=== PATIENT | female | born 1995 | race American Indian/Alaskan Native ===

== ENCOUNTER 2016-11-22 17:47 | Emergency (ER) | payer OTHER ==
[2016-11-22 19:28] LABS: Bilirubin,Urine NEG (Negative); Blood,Urine NEG (Negative); Ketones,Urine NEG (Negative); Leukocyte Esterase,Urine TR (Negative); Mucus,Urine FEW /HPF; Nitrite,Urine NEG (Negative); Protein,Urine <15 mg/dL mg/dL (Negative); RBC,Urine < 1.0 /HPF (0.0-6.0); Urobilinogen,Urine < 2.0 mg/dL (<2.0)
--- NOTE | 2016-11-22 21:31 | Emergency Department Report ---
Entered by MARTIN SEBASTIAN, acting as scribe for JANEL LICEA PA. ED Female HPI - General Chief complaint: Urogenital-Female Stated complaint: CHECK FOR BV Time Seen by Provider: 11/22/16 20:20 Source: patient Mode of arrival: Ambulatory Limitations: No Limitations - History of Present Illness Initial comments: 20 y/o female presents to the ED c/o vaginal discharge x 2 weeks. Associated symptoms include odor but denies fever, chills, dysuria, hematuria, vaginal bleed, abdominal pain, nausea and vomiting. Patient states she is not concerned about STDs but wants to be checked for BV. States unprotected sex with one partner. No alleviating or aggravating factors. NKDA. LMP: 11/07/16. PSHx of tonsillectomy. patient has declined STD treatment and will wait for results. Complaint: vaginal discharge Onset/Timin -: week(s) Severity: mild Consistency: constant Improves with: none Worsens with: none Are you Now?: No Last Menstrual Period: 11/07/16 EDC: 08/14/17 Associated Symptoms: vaginal discharge. denies: vaginal bleeding, abdominal pain, nausea/vomiting, fever/chills, dysuria, hematuria, rash - Related Data Sexually active: Yes Allergies Allergy/AdvReac Type Severity Reaction Status Date / Time No Known Allergies Allergy Unverified 11/22/16 17:54 ED Review of Systems Comment: All other systems reviewed and negative Constitutional: denies: chills, fever Eyes: denies: eye pain, eye discharge, vision change ENT: denies: ear pain, throat pain Respiratory: denies: cough, shortness of breath, wheezing Cardiovascular: denies: chest pain, palpitations Endocrine: no symptoms reported Gastrointestinal: denies: abdominal pain, nausea, vomiting Genitourinary: discharge (white). denies: urgency, dysuria, hematuria Musculoskeletal: denies: back pain, joint swelling, arthralgia Skin: denies: rash, lesions Neurological: denies: headache, weakness, numbness, paresthesias, confusion, abnormal gait, vertigo Psychiatric: denies: anxiety, depression Hematological/Lymphatic: denies: easy bleeding, easy bruising ED Past Medical Hx - Past Medical History Previous Medical History?: No - Surgical History Past Surgical History?: Yes Additional Surgical History: tonsillectomy, d&c - Social History Smoking Status: Never Smoker Substance Use Type: None ED Physical Exam - General Limitations: No Limitations General appearance: alert, in no apparent distress - Head Head exam: Present: atraumatic, normocephalic, normal inspection - Eye Eye exam: Present: normal appearance, PERRL, EOMI Pupils: Present: normal accommodation - ENT ENT exam: Present: normal exam, normal orophraynx, mucous membranes moist, normal external ear exam - Neck Neck exam: Present: normal inspection - Respiratory Respiratory exam: Present: normal lung sounds bilaterally. Absent: respiratory distress, wheezes, rales, rhonchi, stridor - Cardiovascular Cardiovascular Exam: Present: regular rate, normal rhythm, normal heart sounds. Absent: bradycardia, tachycardia, irregular rhythm - GI/Abdominal GI/Abdominal exam: Present: soft, normal bowel sounds. Absent: distended, tenderness, guarding, rebound, rigid - External exam: Present: normal external exam Speculum exam: Present: normal speculum exam, cervical discharge (white) - Extremities Exam Extremities exam: Present: normal inspection - Back Exam Back exam: Present: normal inspection, full ROM - Neurological Exam Neurological exam: Present: alert, oriented X3, normal gait - Psychiatric Psychiatric exam: Present: normal affect, normal mood - Skin Skin exam: Present: warm, dry, intact, normal color. Absent: rash - Other Other exam information: Albino Sebastian present during external/speculum/bi-manual exam ED Course Vital Signs 11/22/16 17:54 Temperature 99 F Pulse Rate 66 Respiratory 16 Rate Blood Pressure 100/69 O2 Sat by Pulse 100 Oximetry ED Medical Decision Making - Lab Data wet prep positive for clue cells - Medical Decision Making 20 year old female presents to ED with vaginal discharge and odor. patient has wet prep positive for BV. patient is stable, neurologically intact and in no acute distress. patient has GC results pending and has declined treatment during today's ED visit. patient agrees and understands to return for STD results if desired. ED Disposition Clinical Impression: Bacterial vaginosis Disposition: DC- TO HOME OR SELFCARE Is pt being admited?: No Does the pt Need Aspirin: No Condition: Stable Instructions: Bacterial Vaginosis (ED) Prescriptions: metroNIDAZOLE [Flagyl] 500 mg PO BID #14 tablet Referrals: PRIMARY CARE, [Primary Care Provider] - 3-5 Days Forms: STI Treatment and Prevention This documentation as recorded by the ROMUL[employer] cook ELIZABETH,accurately reflects the service I personally performed and the decisions made by ,JANEL LICEA PA.
[2016-11-22 22:38] VITALS: BP 122/77
== END 2016-11-22 22:30 | disposition home or self-care (01) ==
LOC: ED 17:47
DX: N76.0 Acute vaginitis (principal)
CPT/HCPCS: 81001; 81025; 87210; 87591